=== PATIENT | female | born 1960 | race Caucasian/White ===

== ENCOUNTER 2017-12-28 17:21 | Emergency (ER) | payer OTHER ==
[2017-12-28] MEDS: ONDANSETRON 4 MG INJ IV (17:49)
[2017-12-28] MEDS: SOD CHLORIDE 0.9% 1,000 ML IV ×2 (17:49→20:01)
[2017-12-28 17:52] LABS: ADD MAN DIFF? NO
[2017-12-28 17:55] LABS: BASOPHILS % 0.2 % (0.0-2.0); EOSINOPHILS % 0.1 % (0.0-7.0); HEMATOCRIT 32.9 % (37.0-47.0); HEMOGLOBIN 10.1 g/dl (12.0-16.0); LYMPHOCYTES # 1.3 10^3/ul (0.8-2.9); LYMPHOCYTES % 7.6 % (15.0-51.0); MEAN CORPUSCULAR HEMOGLOBIN 32.6 pg (29.0-33.0); MEAN CORPUSCULAR HGB CONC 30.7 g/dl (32.0-37.0); MEAN CORPUSCULAR VOLUME 106.1 fl (82.0-101.0); MONOCYTE # 1.3 10^3/ul (0.3-0.9); MONOCYTES % 7.7 % (0.0-11.0); NEUTROPHIL # 13.9 10^3/ul (1.6-7.5); PLATELET COUNT 278 10^3/UL (140-415); RED CELL DISTRIBUTION WIDTH 14.7 % (11.5-14.5)
[2017-12-28 17:55] LABS: WHITE BLOOD COUNT 16.6 10^3/ul (4.8-10.8)
[2017-12-28 18:04] LABS: AADO2 Arterial 517.1 mmHg (7.0-24.0); Allen Test ACCEPTAB; Arterial Base Excess -5.2 mmol/L (-3.0-3); Arterial Blood Gas Oxygen Sat 97.9 mmHG (95.0-98.0); Arterial COHb 0.3 % (0.0-3.0); Arterial Fraction of Oxyhgb 97.4 % (93.0-99.0); Arterial HCO3 23.8 mmol/L (22.0-26.0); Arterial MetHb 0.2 % (0.0-1.5); Arterial Total Hemglobin 10.2 g/dl (12.0-18.0); Arterial pCO2 66.4 mmhg (35-45); MODE MASK - NRB; Site Right Radial
[2017-12-28 18:09] LABS: INR 0.99; PROTIME 13.2 Sec (11.9-14.9)
[2017-12-28 18:10] LABS: PARTIAL THROMBOPLASTIN TIME 30.5 Sec (23.0-35.0)
[2017-12-28 18:18] LABS: ALANINE AMINOTRANSFERASE 22 IU/L (13-69); ALBUMIN/GLOBULIN RATIO 1.17; ALKALINE PHOSPHATASE 109 IU/L (42-121); ANION GAP 14 (8-16); ASPARTATE AMINO TRANSFERASE 30 IU/L (15-46); BILIRUBIN,INDIRECT 0.2 mg/dl (0-1.1); BILIRUBIN,TOTAL 0.2 mg/dl (0.2-1.3); BLOOD UREA NITROGEN 18 mg/dl (7-20); CALCIUM 8.6 mg/dl (8.4-10.2); CARBON DIOXIDE 24 mmol/L (21-31); CHLORIDE 111 mmol/L (97-110); GLUCOSE 295 mg/dl (70-220); SODIUM 143 mmol/L (135-144); TOTAL PROTEIN 7.4 g/dl (6.1-8.1)
[2017-12-28 18:28] LABS: LACTIC ACID 3.9 mmol/L (0.5-2.0)
[2017-12-28 18:29] LABS: TROPONIN-I < 0.012 ng/ml (0.000-0.120)
[2017-12-28] MEDS: SOD CHLORIDE 0.9% 100 ML (18:54)
[2017-12-28] MEDS: IODIXANOL LOCM 100 ML BTL (18:54)
[2017-12-28] MEDS: CEFEPIME 2GM/50 ML (PMX) 50 ML IVPB (19:18)
[2017-12-28] MEDS: LEVALBUTEROL (NEB) 1.25 MG/0.5 ML AMP HHN (19:58)
[2017-12-28] MEDS: IPRATROPIUM (NEB) 0.5 MG/2.5 ML AMP HHN (19:58)
[2017-12-28 20:40] LABS: AADO2 Arterial 193.6 mmHg (7.0-24.0); Allen Test ACCEPTAB; Arterial Base Excess -5.9 mmol/L (-3.0-3); Arterial Blood Gas Oxygen Sat 97.1 mmHG (95.0-98.0); Arterial COHb 0.3 % (0.0-3.0); Arterial Fraction of Oxyhgb 96.5 % (93.0-99.0); Arterial HCO3 21.3 mmol/L (22.0-26.0); Arterial MetHb 0.3 % (0.0-1.5); Arterial pCO2 49.8 mmhg (35-45); Blood Gas IEPAP 15/5; MODE MASK - BIPAP; Site Left Radial
[2017-12-28 21:12] LABS: LACTIC ACID 1.6 mmol/L (0.5-2.0)
[2017-12-29] MEDS: morphine 4 MG/ML VIAL IV (00:02)
[2017-12-29 01:08] LABS: LACTIC ACID 1.3 mmol/L (0.5-2.0)
== END 2017-12-29 01:13 | disposition short-term general hospital (02) ==
LOC: E/R 12-29 01:13
DX: J96.90 Respiratory failure, unspecified, unspecified whether with hypoxia or hypercapnia (principal); R65.10 Systemic inflammatory response syndrome (SIRS) of non-infectious origin without acute organ dysfunction; N18.9 Chronic kidney disease, unspecified; E11.65 Type 2 diabetes mellitus with hyperglycemia; R41.82 Altered mental status, unspecified; Z79.4 Long term (current) use of insulin; Z79.82 Long term (current) use of aspirin
CPT/HCPCS: 36415; 36600; 70450; 70491; 71045; 71275; 80053; 82803; 82962; 83605; 84484; 85025; 85610; 85730; 87040; 87086; 93005; 94660; 94664; 96361; 96365; 96375; 99291-25